=== PATIENT | female | born 2000 | race Two or more races ===

== ENCOUNTER 2025-04-08 10:22 | Outpatient (CLI) | payer MEDICAID, SELFPAY ==
--- NOTE | 2025-04-08 10:26 | XR_ITS ---
Examination: Complete OB ultrasound greater than 14 weeks Date and time of exam: April 08, 2025, 1108 hours INDICATIONS: Pelvic contractions 1 week, unknown size and dates Findings: Viable intrauterine single fetus with single amniotic sac presentation cephalic spine anterior Cardiac motion 136 bpm Placenta right lateral grade 2 Umbilical cord insertion seen Amniotic fluid index 12.9 cm Cervix 2.6 cm Ovaries obscured by bowel gas. Composite estimated gestational age based on BPD, head circumference, abdominal circumference, femur length is 34 weeks 1 day Estimated weight 2261.7 g. Survey of intracranial anatomy, spinal anatomy, abdominal anatomy, four-chamber heart performed with no abnormalities identified. Impression: Viable intrauterine gestation cephalic presentation Estimated gestational age 34 weeks 1 day.
[2025-04-08 10:28] VITALS: BP 112/69; PULSE 117; RESP 18; RESP 99; BMI 27.0
[2025-04-08 10:29] VITALS: BP 112/69; PULSE 117; PULSE 120; O2SAT 99
[2025-04-08 10:34] VITALS: PULSE 96; O2SAT 98
[2025-04-08 10:39] VITALS: PULSE 111; O2SAT 99
[2025-04-08 10:44] VITALS: PULSE 100; O2SAT 98
== END 2025-04-08 11:35 | disposition home or self-care (01) ==
LOC: S4S1 10:24 → S4SX 10:24
PROVIDERS: Referring Provider Obstetrics & Gynecology; Visit Provider Obstetrics & Gynecology
DX: Z34.83 Encounter for supervision of other normal pregnancy, third trimester (principal); Z36.89 Encounter for other specified antenatal screening; Z3A.35 35 weeks gestation of pregnancy
CPT/HCPCS: 59025; 76805